=== PATIENT | female | born 1980 | race Caucasian/White ===

== ENCOUNTER 2018-06-06 11:24 | Outpatient (CLI) | payer MEDICAID, SELFPAY | END 2018-06-06 11:44 | PROVIDERS: PCP Family Medicine; Visit Provider Family Medicine | DX: E55.9 Vitamin D deficiency, unspecified (principal) | CPT/HCPCS: 36415; 82306 ==

== ENCOUNTER 2019-06-17 02:00 | Outpatient (CLI) | payer MEDICAID, SELFPAY ==
--- NOTE | 2019-06-17 08:45 | DI.RAD_ITS ---
EXAM: RF BARIUM SWALLOW CLINICAL HISTORY: severe reflux K29.60 GASTRITIS W/O BLEEDING TECHNIQUE: 2D and realtime digital imaging was performed. CONTRAST MATERIAL: Thick and thin barium and barium tablet were administered. COMPARISON: MRI - CERVICAL SPINE W/WO from 02/21/2016 FINDINGS: Initial plain film of the chest reveals normal heart size and clear lung grimaldo. The lateral full fashioned garment knitter v iew of the neck is unremarkable. Surgical clips are noted in the right upper quadrant. Esophagus: The patient swallowed barium without difficulty. the esophagus is patent with no evidence for erosions, fold thickening, strictures, or masses. With regards to the motility, there is a jean claude l primary stripping wave. No tertiary contractions were noted. There is a small hiatal hernia. No ga stroesophageal reflux was observed during the exam. IMPRESSION: Small hiatal hernia, otherwise negative. Fluoro time: 34 seconds
[2019-06-17] MEDS: Barium Sulfate 700 MG TAB PO (09:37)
[2019-06-17] MEDS: Barium Sulfate 60% W/V 355 ML BTL PO (09:37)
[2019-06-17] MEDS: Simethicone/Sod Bicarb/Cit Ac, 4 gram PACKET 1 PACKET PO (09:40)
== END 2019-06-17 02:20 ==
PROVIDERS: PCP Family Medicine; Visit Provider Family Medicine
DX: K29.60 Other gastritis without bleeding (principal); K21.9 Gastro-esophageal reflux disease without esophagitis; K44.9 Diaphragmatic hernia without obstruction or gangrene
CPT/HCPCS: 74221; J3490

== ENCOUNTER → 2022-02-09 03:11 | Outpatient (CLI) | payer MEDICAID, SELFPAY ==
--- NOTE | 2022-02-09 08:00 | DI.MRI_ITS ---
Exam(s) MR BRAIN WO/W EXAM: MR BRAIN WO/W CLINICAL HISTORY: syrinx and now MATA,optic nerve changes,g95.0,h47.099 TECHNIQUE: Multiplanar multisequence MRI of the brain was performed. CONTRAST MATERIAL: IV Contrast: 12 mL of Dotarem contrast administered. COMPARISON: MR MRI - BRAIN WO CONTRAST from 08/19/2012 FINDINGS: The examination is limited due to patient motion artifact. VENTRICLES AND EXTRA AXIAL SPACES: Normal in size and morphology for the patient's age. HEMORRHAGE: None. CEREBRAL PARENCHYMA: No focus of restricted diffusion to suggest acute infarct. No space-occupying le [place] identified. MIDLINE SHIFT: None. BRAINSTEM/CEREBELLUM: Normal. CALVARIUM: Normal. ENHANCEMENT: No suspicious enhancement identified. VISUALIZED PARANASAL SINUSES/MASTOIDS: Clear. TORRES MARTINEZ OF NUGENT: Normal flow void. PITUITARY GLAND: Unremarkable. OTHER FINDINGS: IMPRESSION: Unremarkable MRI of the brain. DATA REPOSITORY:
--- NOTE | 2022-02-09 08:00 | DI.MRI_ITS ---
Exam(s) MR CERVICAL SPINE WO/W EXAM: MR CERVICAL SPINE WO/W CLINICAL HISTORY: 2016 - syrinx - increasing neck pain,m54.2,g95.0,h47.099 TECHNIQUE: Multiplanar multisequence MRI of the cervical spine was performed. CONTRAST MATERIAL: IV Contrast: ML of Dotarem contrast administered. COMPARISON: MR MRI - CERVICAL SPINE W/WO from 02/21/2016 FINDINGS: BONES: Vertebral body heights are maintained. Intervertebral disc spaces are normal. Alignment is nor mal. Bone marrow signal intensity is within normal limits. CERVICAL CORD: Craniovertebral junction is unremarkable. The cervical cord is normal size and signal intensity. The central canal is much less prominent on the current examination compared to 2016. SOFT TISSUES: Unremarkable. ENHANCEMENT: No suspicious enhancement identified. C2-3: No disc herniation or bulge is identified. No significant central spinal canal or neural forami nal stenosis. C3-4: No disc herniation or bulge is identified. No significant central spinal canal or neural forami nal stenosis C4-5: There is prominence of the osteophyte disc complex. There is also prominence of the right unco vertebral joint. There is no significant central spinal canal stenosis or left neural foraminal sten osis. Moderate right neural foraminal stenosis is present. C5-6: There is mild prominence of the osteophyte disc complex. No significant central spinal canal s tenosis is seen. There is [id number]-bz-cvejuyaf bilateral neural foraminal stenosis. C6-7: No disc herniation or bulge is identified. No significant central spinal canal or neural forami nal stenosis C7-T1: No disc herniation or bulge is identified. No significant central spinal canal or neural radha inal stenosis IMPRESSION: 1. No abnormal enhancement or enhancing mass. 2. Cervical spondylosis at C4-5 and C5-C6 resulting in neural foraminal stenosis as described above. DATA REPOSITORY:
[2022-02-09] MEDS: Normal Saline Flush 10 ML SYR IVP (13:07)
== END ==
PROVIDERS: PCP Family Medicine; Visit Provider Family Medicine
DX: G95.0 Syringomyelia and syringobulbia (principal); M54.2 Cervicalgia; M47.812 Spondylosis without myelopathy or radiculopathy, cervical region
CPT/HCPCS: 70553; 72156

== ENCOUNTER 2022-08-31 08:50 | Outpatient (CLI) | payer MEDICAID, SELFPAY ==
--- NOTE | 2022-08-31 06:00 | DI.RAD_ITS ---
Exam(s) XR PAIN CLINIC CERVICAL SP 2V EXAM: XR PAIN CLINIC CERVICAL SP 2V CLINICAL HISTORY: Dx: Cervical Spondylosis TECHNIQUE: 2D and realtime digital imaging was performed. CONTRAST MATERIAL: Refer to procedure report. COMPARISON: No exams were available for comparison FINDINGS: Fluoroscopy was provided for Dr. Doyle during the performance of a cervical medial branch block. Ple ase refer to the procedure report for complete details. Ka,r=3.6 mGy IMPRESSION:
[2022-08-31 08:58] VITALS: BP 142/81; PULSE 89; RESP 20; TEMP 36.9; O2SAT 96
[2022-08-31 09:51] VITALS: BP 124/63; PULSE 76; RESP 24; O2SAT 97
[2022-08-31] MEDS: Bupivacaine 0.5% Pres-Free 10 ML VIAL IJ (09:51)
[2022-08-31] MEDS: Omnipaque 240 MG/ML 50 ML BTL IJ (09:51)
--- NOTE | 2022-08-31 09:55 | PDOC.PAIN ---
Date of service: 08/31/22 Time of Service: 09:58 Pain Managment Procedure Note Procedure Note Procedure Note: CERVICAL MEDIAL BRANCH BLOCKS Ban Park has been referred to the Pain Management Center for cervical medial branch blocks. COMMENTS: She was evaluated by Dr. Marcos in our clinic on 05/22/22 and her symptoms remain the same. Pre-procedure pain VAS was 6/10. DX: Cervical spondylosis without myelopathy Patient was interviewed and the medical record reviewed. There were no medical, pharmacologic, radiographic or other structural contraindications to attempting fluoroscopically guided local anesthetic cervical medial branch blocks. Risks and expected side effects as well as potential benefit of the procedure were reviewed and voiced concerns addressed. The printed consent form was signed and witnessed. Standard time-out procedure was performed. Patient was placed in the right lateral decubitus position on the fluoroscopy table and automated blood pressure cuff and pulse oximeter applied. The skin entry points for approaching the anatomic target points of the segmental medial branches of the left C4-C6 were identified with fluoroscopy and marked. Following thorough Chlorhexadine preparation of the skin and draping, a 25 gauge spinal needle was placed under fluoroscopic guidance down on to the target point for each respective segmental medial branch. Position was confirmed in A/P and leteral views with 0.25ml of omnipaque 240 injected at each level. This revealed appropriate spread and no vascular uptake. At each point 0.3ml 0.5% bupivicaine was injected. The needles were removed without difficulty and bandaids were placed. Vital signs were stable throughout the procedure and were as recorded in the docflowsheet by the nursing staff. Follow up plans and appointments were discussed and patient was instructed to keep careful note of how the usual pain was modified by these injections. Specifically, the patient was asked to keep a pain diary for the next 24 hours using a numeric pain scale of 0-10 and report these results at the follow-up visit. Post procedure instruction was given as documented in the nursing documentation and having met discharge criteria, and was discharged from the Pain Management Center. Based on the medial branches blocked today, if they patient has adequate relief and we are able to proceed to radiofrequency ablation, the treatment should result in the denervation of the left C4-C5 and C5-C6 FACET JOINTS. We would expect to denervate a total of 2 facets during the radiofrequency ablation. COMMENTS: Post-procedure pain VAS was 3/10 and she was able to move her neck much better. Cayetano Doyle DO, MPH [facility] CC: Giovanna Colbert MD, DC
== END 2022-08-31 08:51 | disposition home or self-care (01) ==
LOC: PC 08:50
PROVIDERS: PCP Family Medicine; Visit Provider Preventive Medicine Occupational Medicine
DX: M47.812 Spondylosis without myelopathy or radiculopathy, cervical region (principal)
CPT/HCPCS: 64490; 64491; 72040; Q9967

== ENCOUNTER 2022-09-14 07:10 | Outpatient (CLI) | payer MEDICAID, SELFPAY ==
[2022-09-14 07:20] VITALS: BP 121/81; PULSE 57; RESP 20; TEMP 36.8; O2SAT 98
--- NOTE | 2022-09-14 07:54 | DI.RAD_ITS ---
Exam(s) XR PAIN CLINIC CERVICAL SP 2V EXAM: XR PAIN CLINIC CERVICAL SP 2V CLINICAL HISTORY: Dx: Cervical Spondylosis TECHNIQUE: 2D and realtime digital imaging was performed. Radiologist not present. CONTRAST MATERIAL: None. COMPARISON: No exams were available for comparison FINDINGS: Fluoroscopy was provided for pain management therapy. Please refer to procedure report or details. Radiation Exposure Index: Ka,r=3.02 mGy IMPRESSION: As above. RADIATION DOSE DELIVERED:
[2022-09-14] MEDS: Lidocaine 2% Pres-Free 5 ML VIAL IJ (08:04)
[2022-09-14] MEDS: Omnipaque 240 MG/ML 50 ML BTL IJ (08:04)
[2022-09-14 08:13] VITALS: BP 143/91; PULSE 75; RESP 22; O2SAT 96
--- NOTE | 2022-09-14 08:40 | PDOC.PAIN ---
Date of service: 09/14/22 Time of Service: 08:43 Pain Managment Procedure Note Procedure Note Procedure Note: PROCEDURE NOTE LEFT SIDED CERVICAL MEDIAL BRANCH BLOCKS #2 Date of Service: September 14, 2022 Patient: Ban Park Provider: Cayetano Doyle DO, MPH Ban Park has been referred to the Pain Management Center for cervical medial branch blocks. Pre-operative diagnosis: Cervical Spondylosis without Myelopathy Post-operative diagnosis: Same Pre-procedure pain: VAS= 6/10 COMMENTS: She did very well with her first CMBB at these same levels. Ban was interviewed and the medical record were reviewed. There were no medical, pharmacologic, radiographic or other structural contraindications to attempting fluoroscopically guided local anesthetic cervical medial branch blocks. Risks and potential side effects were discussed. We also discussed the potential benefit(s) of the procedure with Ban, and her voiced concerns were addressed. After she was completely informed about the procedure, the printed consent form was signed. A standard time-out procedure was performed. Ban was placed in the lateral decubitus position on the fluoroscopy table with the effected side up. Automated blood pressure cuff and pulse oximeter were applied. The skin entry points for approaching the anatomic target points of the segmental medial branches of Left C4-C6 were identified with fluoroscopy and marked. The skin at the target site area was thoroughly prepared with Chlorhexadine. The skin was then draped. Next, a 25 gauge 3.5 spinal needle was placed under fluoroscopic guidance down on to the target point (the articular pillar) for each respective segmental medial branch. Position was confirmed in A/P and lateral views. Aspiration revealed no blood or clear fluid. Next, 0.25ml of omnipaque 240 was injected at each level. No contrast following a vascular or neural pattern was visualized under continuous fluoroscopy. Next, 0.25 ml of preservative-free 2% Lidocaine was injected at each level. (48 mls of Omnipaque was wasted) Ban's vital signs were stable throughout the procedure and were as recorded in the docflowsheet by the nursing staff. Provacative testing using the Modified Waters's facet loading test Left side Directly before the block VAS (0-10) = 6/10 5 minutes after the block VAS (0-10) = 2/10 Percentage relief obtained with this diagnostic block 80% Any improved physical functioning directly after the blocks? Able to move her neck much more easily Follow up plans and appointments were discussed with Ban. Ban was instructed to keep careful note of how the usual pain was modified by these injections. Specifically, the patient was asked to keep a pain diary for the next 24 hours using a numeric pain scale of 0-10 and report these results at the follow-up visit. Post procedure instruction was given as documented in the nursing documentation and having met discharge criteria, she was discharged from the Pain Management Center. Based on the medial branches blocked today, if they patient has adequate relief and we are able to proceed to radiofrequency ablation, the treatment should result in the denervation of the Left C4-C5 and C5-C6 facet joints. We would expect to denervate a total of 2 facets during the radiofrequency ablation. COMMENTS: She will call back with her 0-4 hour post-procedure pain scores. Post-procedure pain: VAS= 2/10 I personally performed the entire procedure. Cayetano Doyle DO, MPH ABPMR-subspecialty board certification in Pain Medicine [facility]
== END 2022-09-14 07:11 | disposition home or self-care (01) ==
LOC: PC 07:11
PROVIDERS: PCP Family Medicine; Visit Provider Preventive Medicine Occupational Medicine
DX: M47.812 Spondylosis without myelopathy or radiculopathy, cervical region (principal)
CPT/HCPCS: 64490; 64491; 72040; Q9967

== ENCOUNTER 2022-10-02 07:30 | Outpatient (CLI) | payer MEDICAID, SELFPAY ==
[2022-10-02] MEDS: Midazolam 2 MG/2 ML VIAL IVP (08:21)
[2022-10-02] MEDS: Lactated Ringers 500 ML 80 ML IV (08:24)
--- NOTE | 2022-10-02 08:43 | DI.RAD_ITS ---
Exam(s) XR PAIN CLINIC CERVICAL SP 2V EXAM: XR PAIN CLINIC CERVICAL SP 2V CLINICAL HISTORY: Dx: Cervical Spondylosis. TECHNIQUE: Fluoroscopy was provided for the referring physician for guidance with performing pain cl inic radiofrequency ablation procedure. COMPARISON: No exams were available for comparison FINDINGS: Please see procedure note for details. Fluoro time: 42.1 seconds RADIATION DOSE DELIVERED: Terrar=4.61 mGy
[2022-10-02 08:45] VITALS: BP 105/62; PULSE 66; RESP 16; O2SAT 99
[2022-10-02] MEDS: Dexamethasone Sod. Phos./Pres-Free 10 MG/ML VIAL IJ (08:53)
[2022-10-02] MEDS: Lidocaine 2% Pres-Free 5 ML VIAL IJ (08:54)
[2022-10-02] MEDS: Bupivacaine 0.5% Pres-Free 10 ML VIAL IJ (08:54)
--- NOTE | 2022-10-02 09:03 | PDOC.PAIN ---
Date of service: 10/02/22 Time of Service: 09:03 Pain Managment Procedure Note Procedure Note Procedure Note: Cervical Radiofrequency with Avanos Machine PROCEDURE NOTE Date of Service: October 02, 2022 Patient: Ban Park Provider: Cayetano Doyle DO, MPH Pre Operative Diagnosis: Cervical Spondylosis without Myelopathy Post Operative Diagnosis: Same Pre-procedure pain: VAS 6/10 PROCEDURE: 1. Left C4-C5 facet joint radiofrequency denervation 2.Left C5-C6 facet joint radiofrequency denervation Ban Park was brought to the procedure suite and placed on the exam table in a comfortable lateral recumbent position. The place for the needle placement was obtained by manual palpation as well as radiographic confirmation. The sterile field was prepped by chlorhexidine and sterile drapes. Local anesthesia, both superficial and deep was provided by local infiltration of 3 ml Lidocaine 1%. Using fluoroscopic guidance, A 17g 50 mm radiofrequency introducer needle with a 2 mm active tip was placed overlying the left C4 cervical vertebra from the lateral approach and was advanced until bony contact was felt with the articular pillar. Attempted aspiration revealed no blood or cerebrospinal fluid. Motor testing was then performed with 2.0 volts and no upper extremity motor stimulation was observed. 1 ml of 2% Lidocaine was injected through the RF needle. A radiofrequency lesion of the left medial branch of C4 was then performed at 80 degrees Celsius for 2 minutes and 30 seconds. The same procedure was repeated for left C5 and C6 medial branches. POST PROCEDURE EVALUATION: IMPRESSION: 1. Medication given is documented in the MAR 2. Follow up plan: Follow up as needed. 3. Estimated Blood Loss: <5ml 4. Fluoroscopy time: Documented in the EMR Follow up plans and appointments were discussed with the Ban . Post procedure instruction was given as documented in nursing documentation and having met discharge criteria, Ban was discharged from the Pain Management Center. COMMENTS: No apparent complications. Post-procedure pain: VAS= 0/10. I personally performed this entire procedure. Cayetano Doyle DO, MPH [facility]-Pain Management [facility]
== END 2022-10-02 07:31 | disposition home or self-care (01) ==
LOC: PC 07:30
PROVIDERS: PCP Family Medicine; Visit Provider Preventive Medicine Occupational Medicine
DX: M47.812 Spondylosis without myelopathy or radiculopathy, cervical region (principal)
CPT/HCPCS: 64633; 64634; 72040; J2250

== ENCOUNTER → 2023-02-20 18:41 | Outpatient (CLI) | payer MEDICAID, SELFPAY ==
--- NOTE | 2023-02-20 12:15 | DI.US_ITS ---
Exam(s) US LOWER EXTREMITY VENOUS LT EXAM: US LOWER EXTREMITY VENOUS LT CLINICAL HISTORY: left leg swelling,M79.89 TECHNIQUE: Grayscale, color, and doppler imaging of the deep venous system of the left lower extremi ty was performed. COMPARISON: US ABDOMEN ULTRASOUND (P) from 08/19/2012 FINDINGS: There is no evidence of intraluminal thrombus and there is normal compression and augmentation demons trated within the common femoral vein, femoral vein, and popliteal vein. In the ipsilateral calf the interrogated veins also exhibit normal compression/ augmentation properti es. The ipsilateral saphenofemoral junction is patent. IMPRESSION: 1. No evidence of DVT in the left lower extremity. DATA REPOSITORY:
== END ==
PROVIDERS: PCP Family Medicine; Visit Provider Family Medicine
DX: M79.89 Other specified soft tissue disorders (principal)
CPT/HCPCS: 93971

== ENCOUNTER 2023-04-06 02:09 | Outpatient (CLI) | payer MEDICAID, SELFPAY ==
[2023-04-06 13:57] LABS: HCT 39.1 % (36.0-46.0); MCH 30.2 pg (27.0-33.0); MCHC 33.2 % (32.0-36.0); MCV 91 fL (80-95); Platelet Count 507 10^3/uL (130-400); RBC 4.31 10^6/uL (3.93-5.22); RDW 14.9 % (11.7-14.6); RDW-SD 49.7 fL
[2023-04-06 14:07] LABS: WBC 14.42 10^3/uL (4.4-10.8)
[2023-04-06 14:23] LABS: ALT 15 U/L (14-59); AST 14 U/L (15-37); Albumin 3.9 g/dL (3.4-5.0); Alkaline Phosphatase 61 U/L (46-116); Anion Gap 6.8 mmol/L (3-11); BUN 13 mg/dL (7-18); Bilirubin, Total 0.3 mg/dL (0.2-1.0); CO2 28.2 mmol/L (21.0-32.0); Calcium 9.1 mg/dL (8.5-10.1); Chloride 105 mmol/L (98-107); Estimated GFR 72.58 (mL/min/1.73m2); Glucose 115 mg/dL (74-106); Lipase 192 U/L (16-77); Potassium 3.7 mmol/L (3.5-5.1); Sodium 140 mmol/L (136-145); TSH (W/Ref FT4) 0.67 uIU/mL (0.36-3.74); Total Protein 7.4 g/dL (6.4-8.2)
== END 2023-04-06 02:10 | disposition home or self-care (01) ==
LOC: LBO 02:09
PROVIDERS: PCP Family Medicine; Visit Provider Family Medicine
DX: E03.9 Hypothyroidism, unspecified (principal); R10.9 Unspecified abdominal pain; I10 Essential (primary) hypertension
CPT/HCPCS: 36415; 80053; 83690; 85027; 84443

== ENCOUNTER 2023-04-18 07:35 | Outpatient (CLI) | payer BC, MEDICAID, SELFPAY ==
[2023-04-18 07:47] VITALS: BP 124/72; PULSE 67; RESP 20; TEMP 36.7; O2SAT 96
[2023-04-18] MEDS: Midazolam 2 MG/2 ML VIAL IVP (08:25)
--- NOTE | 2023-04-18 08:51 | PDOC.PAIN_ITS ---
Date of service: 04/18/23 Time of Service: 08:51 Pain Managment Procedure Note Procedure Note Procedure Note: PROCEDURE NOTE LEFT Cervical Radiofrequency Ablation Date of Service: April 18, 2023 Patient:? Ban Park? Provider:? Cayetano Doyle DO, MPH Ban Park has been referred to the [facility] for LEFT Cervical Radiofrequency Ablation with the AvLesConciergess Machine.? Pre Operative Diagnosis: Cervical Spondylosis without Myelopathy Post Operative Diagnosis: Same Pre procedure pain; VAS= 5/10 Comments: She had >6 months of >50% pain relief from her last left C4-C6 RFA on 10/02/22 PROCEDURE: 1. Left C4-C5 facet joint radiofrequency denervation 2. Left C5-C6 facet joint radiofrequency denervation Toluwas interviewed and the medical record was reviewed.? There were no medical, pharmacologic, radiographic or other structural contraindications to attempting fluoroscopically guided LEFT Cervical Radiofrequency Ablation.?Risks and expected side effects as well as potential benefit of the procedure were reviewed with Ban, and the patient's voiced concerns were addressed.? The printed consent form was signed.? Standard time-out procedure was performed. Ban was brought to the procedure suite and placed on the exam table in a comfortable lateral recumbent position. A grounding pad was placed on the left abdomen. The place for the needle placement was obtained by manual palpation as well as radiographic confirmation. The sterile field was prepped by chlorhexidine and sterile drapes. Local anesthesia, both superficial and deep was provided by local infiltration of 3 ml Lidocaine 1%. Using fluoroscopic guidance, A 17g 50 mm radiofrequency introducer needle with a 2 mm active tip was placed overlying the right C4 cervical vertebra from the lateral approach and was advanced until bony contact was felt with the articular pillar. Attempted aspiration revealed no blood or cerebrospinal fluid. Motor testing was then performed with 2.0 volts and no upper extremity motor stimulation was observed. 1 ml of 2% Lidocaine was injected through the RF needle. A radiofrequency lesion of the Left medial branch of C4 was then performed at 80 degrees Celsius for 2 minutes and 30 seconds. There was no unusual discomfort expressed by Ban. The needles were withdrawn without difficulty. Ban was observed and was without hemodynamic, neurologic, or allergic reactions. Fluoroscopic images were digitally archived. The same procedure was repeated for Left C5 and C6 medial branches. POST PROCEDURE EVALUATION: IMPRESSION: 1. Medication given is documented in the MAR 2. Follow up plan: Ban to contact [facility] as needed. This procedure may be repeated if the patient achieves at least 50% improvement in pain and/or function for at least 6 months. 3. Estimated Blood Loss: <5ml 4. Fluoroscopy time: Documented in the EMR Follow up plans and appointments were discussed with Ban. Post procedure instruction was given as documented in nursing documentation and having met discharge criteria, Ban was discharged from the [facility]. COMMENTS: No apparent complications. Post-procedure pain: VAS= 2/10. I personally performed this entire procedure. CAYETANO DOYLE DO, MPH ABPM&R - Subspecialty board certification in Pain Medicine [facility]
[2023-04-18 08:52] VITALS: BP 96/61; PULSE 61; RESP 16; O2SAT 98
--- NOTE | 2023-04-18 08:54 | DI.RAD_ITS ---
Exam(s) XR PAIN CLINIC CERVICAL SP 2V EXAM: XR PAIN CLINIC CERVICAL SP 2V CLINICAL HISTORY: DX: Cervical Spondylosis. TECHNIQUE: Fluoroscopy was provided for the referring physician for guidance with performing pain cl inic injection procedure. COMPARISON: No exams were available for comparison FINDINGS: Please see procedure note for details. Fluoro time: 51.1 seconds RADIATION DOSE DELIVERED: hla Ellison=8.18 mGy
[2023-04-18] MEDS: Bupivacaine 0.5% Pres-Free 10 ML VIAL IJ (09:03)
[2023-04-18] MEDS: Lidocaine 2% Pres-Free 5 ML VIAL IJ (09:04)
[2023-04-18] MEDS: Dexamethasone Sod. Phos./Pres-Free 10 MG/ML VIAL IJ (09:04)
== END 2023-04-18 07:36 | disposition home or self-care (01) ==
LOC: PC 07:35
PROVIDERS: PCP Family Medicine; Visit Provider Preventive Medicine Occupational Medicine
DX: M47.812 Spondylosis without myelopathy or radiculopathy, cervical region (principal)
CPT/HCPCS: 123; 64633; 64634; 72040; 00123; J0665; J1100; J2250

== ENCOUNTER → 2023-04-20 00:46 | Outpatient (CLI) | payer BC, MEDICAID, SELFPAY ==
--- NOTE | 2023-04-20 08:15 | DI.CT_ITS ---
Exam(s) CT ABDOMEN PELVIS W EXAM: CT ABDOMEN PELVIS W CLINICAL HISTORY: abdominal pain,r10.9. TECHNIQUE: Imaging Protocol: Axial computed tomography images with coronal and sagittal reformatted images were created and reviewed CONTRAST MATERIAL: Intravenous: Omnipaque 350 Contrast volume:100 ml Oral: yes / COMPARISON: CT ABD PELVIS WITH CONTRAST from 11/24/2009 FINDINGS: ABDOMEN and PELVIS: Lung Bases: No acute findings. Moderate size hiatal hernia. Liver: Normal density. No measurable mass. Gallbladder and biliary tract: Status post cholecystectomy. No radiodense calculus or dilation. Pancreas: Normal density. No abnormal calcifications or inflammatory process. No evidence of mass. Spleen: Status post splenectomy. Arm small amount of regenerative splenic tissue. Kidneys: Normal size, contour and axis. No radiodense stones. No obstructive uropathy. No suspicious masses seen. Adrenal glands: No masses seen. Vasculature: Abdominal aorta non-dilated. Soft tissues: Unremarkable. Bladder: No gross wall thickening. No calculi.No focal mass. Bowel: Large quantity of stool throughout the colon with sparing of the rectum, consistent with const ipation. No obstruction. No bowel wall thickening. Appendix normal. Peritoneal cavity: No ascites. No focal collection or mesenteric inflammatory response. Bones: Unremarkable for age. Reproductive organs: Within normal limits. IUD in place. Lymph nodes: Unremarkable. IMPRESSION:: Large quantity of stool consistent with constipation, otherwise unremarkable CT scan of the abdomen and pelvis. RADIATION DOSE DELIVERED: !Error Total DLP DATA REPOSITORY: All CT scans at this facility are submitted to the National Radiology Data Registry (NRDR) Dose Index Registry (DIR) with the [employer] (ACR). RADIATION OPTIMIZATION: All CT scans at this facility use at least one of these dose optimization te chniques: automated exposure control; mA and/or kV adjustment per patient size (includes targeted exa ms where dose is matched to clinical indication); or iterative reconstruction.
[2023-04-20] MEDS: Barium Sulfate 2% W/V-Berry Smoothie 450 ML BTL PO ×2 (12:08→12:09)
[2023-04-20] MEDS: Omnipaque 350 MG/ML 100 ML BTL IJ (14:03)
[2023-04-20] MEDS: Normal Saline - Diluent 50 ML VIAL IJ (14:04)
== END ==
PROVIDERS: PCP Family Medicine; Visit Provider Family Medicine
DX: R10.9 Unspecified abdominal pain (principal); K59.00 Constipation, unspecified
CPT/HCPCS: 74177; J3490

== ENCOUNTER 2023-07-04 13:10 | Outpatient (REF) | payer BC, SELFPAY ==
--- NOTE | 2023-07-04 11:30 | PAPFT_PTH ---
PATIENT: Ban Olvera LOC: [facility] U#:[id number] AGE/SX: 43/F ROOM: RE07/04/[address]: Althea Le NP : 1980 BED: DIS: 07/04/2023 SPEC #: [id number] RECD: 07/04/23 13:19 STATUS: BLADE REBridget #: [id number] TRAMAINE: 07/04/23 11:[address]: Rey KAUR,Althea DEPT: [facility] Cytology RECD BY: Marilu Martinez ENTERED: 07/04/23 13:19 SP TYPE: PAPFT OTHR DR: Giovanna Colbert MD, DC Tissues: 1 - CX/ENDOCX FOR PAP SMEARS Procedures: PAP THIN PREP/UVM Screening HPV DNA PROBE Comments: [id number]
== END 2023-07-04 13:11 | disposition home or self-care (01) ==
LOC: LBN 13:10
PROVIDERS: PCP Family Medicine; Visit Provider Nurse Practitioner Women's Health
DX: Z12.4 Encounter for screening for malignant neoplasm of cervix (principal)
CPT/HCPCS: 88142; 87624

== ENCOUNTER → 2023-07-11 03:19 | Outpatient (CLI) | payer MEDICAID, SELFPAY ==
--- NOTE | 2023-07-11 08:00 | DI.MAMMO_ITS ---
Exam(s) MAMMO SCREENING EXAM: MAMMO SCREENING CLINICAL HISTORY: screening,z12.39 TECHNIQUE: Bilateral full field digital CC and MLO mammographic images were obtained with 3D tomosyn thesis and utilizing computer aided detection (CAD). COMPARISON: This is a baseline examination. FINDINGS: Masses/Architectural Distortion: There is a partially obscured nodule in the upper outer quadrant of the left breast measuring 5 mm. It is 4 cm from the nipple. There are no areas of architectural dis tortion. Microcalcifications: No suspicious pleomorphic-type are seen. Skin Thickening/Nipple Retraction: None. IMPRESSION: 1. Partially obscured nodule in the upper outer quadrant of the left breast. 2. Spot compression views requested. Limited left breast ultrasound may be indicated at that time. BI-RADS Category 0 - Assessment Incomplete: Need additional imaging evaluation Breast Density - Category B - Scattered areas of fibroglandular density Breast density category C or D implies that the patient has dense breast tissue. Dense breast tissue is very common and is not abnormal but dense breast tissue can make it harder to find cancer on a ma mmogram. Also, dense breast tissue may increase their breast cancer risk. This information about the result of the mammogram report was provided to the patient to raise their awareness. Use this report when you speak with the patient about their risks for breast cancer, which includes their family hist ory. At that time, you may recommend for more screening tests (Ultrasound or MRI) as they might be us eful based on their risk. A negative radiographic report should not delay biopsy if a dominant or clinically suspicious mass is present. Up to ten percent of cancers are not identified on mammography. A negative report may reinforce clinical impression. Adenosis and dense breasts may obscure an underlying neoplasm. False positive reports average 6 to 10%. Patient will receive a letter notifying them of these results.
== END ==
PROVIDERS: PCP Family Medicine; Visit Provider Nurse Practitioner Women's Health
DX: Z12.31 Encounter for screening mammogram for malignant neoplasm of breast (principal)
CPT/HCPCS: 77063; 77067

== ENCOUNTER → 2023-07-18 03:34 | Outpatient (CLI) | payer MEDICAID, SELFPAY ==
--- NOTE | 2023-07-18 13:08 | DI.MAMMO_ITS ---
Exam(s) MG MAMMO SCREEN CALL BACK UNI US BREAST LT LIMITED EXAM: MG MAMMO SCREEN CALL BACK UNI and U/S breast LT limited CLINICAL HISTORY: R92.8 ABN mammo, partially obscured nodule upper outer quad lt breast. TECHNIQUE: Craniocaudal and mediolateral oblique Full Field Digital Mammography views of the left br east with Computer Aided Diagnosis followed by Tomosynthesis and left breast ultrasound. COMPARISON: Comparison is made with prior examination. FINDINGS: Mammography/Tomosynthesis: Masses/Architectural Distortion: The well-circumscribed nodule in the upper outer quadrant of the lef t breast persists. There is no evidence of architectural distortion. Microcalcifictions: No suspicious pleomorphic-type are seen. Skin Thickening/Nipple Retraction: None. Limited left breast US: Echotexture: Normal appearance of the glandular tissue. Shadowing: No suspicious foci. Cyst: There are several simple cysts present. At the 1 to 3 o'clock position of the left breast, sma ll simple cysts are present. The largest measures 4 mm. In the retroareolar region of the left [address], there is a 0.5 cm simple cyst present. Solid lesions: None seen. Ductal dilation: None. IMPRESSION: 1. No definite evidence of malignancy is noted. 2. A six-month follow-up left mammogram is requested for re-evaluation. 3. The findings were discussed with the patient on the date of the examination. BI-RADS Category 3 - 6 month - Probably Benign Finding: Recommend follow-up imaging in 6 months Breast Density - Category B - Scattered areas of fibroglandular density Breast density Category C or D implies that the patient has dense breast tissue. Dense breast tissue can make it harder to find cancer on a mammogram. Dense breast tissue is also associated with an incr eased risk of breast cancer. This information about the result of the mammogram report was provided to the patient to raise their awareness. Use this report when you speak with the patient about their risks for breast cancer, which includes their family history. At that time, you may recommend additional screening tests (Ultrasoun d or MRI) as these tests may add significant information. A negative radiographic report should not delay biopsy if a dominant or clinically suspicious mass is present. Up to ten percent of cancers are not identified on mammography. A negative report may reinforce clinical impression. Adenosis and dense breasts may obscure an underlying neoplasm. False positive reports average 6 to 10%. Patient will receive a letter notifying them of these results.
== END ==
PROVIDERS: PCP Family Medicine; Visit Provider Nurse Practitioner Women's Health
DX: R92.8 Other abnormal and inconclusive findings on diagnostic imaging of breast (principal)
CPT/HCPCS: 76642; 77063; 77067

== ENCOUNTER 2023-07-18 15:18 | Outpatient (REF) | payer MEDICAID, SELFPAY ==
[2023-07-19 13:25] LABS: Chlamydia Result Negative (Negative); GC Result Negative (Negative)
== END 2023-07-18 15:19 | disposition home or self-care (01) ==
LOC: LBN 15:18
PROVIDERS: PCP Family Medicine; Visit Provider Nurse Practitioner Women's Health
DX: Z11.3 Encounter for screening for infections with a predominantly sexual mode of transmission (principal)
CPT/HCPCS: 87491; 87591

== ENCOUNTER 2024-02-12 01:21 | Outpatient (CLI) | payer MEDICAID, SELFPAY ==
--- NOTE | 2024-02-12 06:30 | DI.US_ITS ---
Exam(s) MG MAMMO DIAGNOSTIC UNI US BREAST LT LIMITED EXAM: MG MAMMO DIAGNOSTIC UNI CLINICAL HISTORY: 6 month f/u,lt nodule and cysts. COMPARISON: MG MG MAMMO SCREENING from 07/11/2023 US US BREAST LT LIMITED from 07/18/2023 MG MG MAMMO SCREEN CALL BACK UNI from 07/18/2023 US US BREAST LT LIMITED from 02/12/2024 TECHNIQUE: Craniocaudal and mediolateral oblique Full Field Digital Mammography views of the left br east with Computer Aided Diagnosis followed by Tomosynthesis and left breast ultrasound. FINDINGS: Mammography/Tomosynthesis: Masses/Architectural Distortion: Small nodule breast. Microcalcifications: No suspicious pleomorphic-type are seen. Skin Thickening/Nipple Retraction: None. Left breast US: Echotexture: Normal appearance of the glandular tissue. Shadowing: No suspicious foci. Cyst: 6 millimeter cyst 3 o'clock position 3 cm from the nipple. 4 millimeter maximal dimension cyst in the retroareolar region. 4 x 5 millimeter cyst 2 o'clock position. Nearby 3 millimeter cyst. Solid lesions: None seen. Ductal dilation: None. IMPRESSION: 1. No evidence of malignancy is noted. Multiple cysts. No suspicious abnormalities. 2. Unless there is more urgent need, follow-up screening mammography is recommended, as per [employer] [place] [employer] guidelines, due in 6 months.. BI-RADS Category 2 - Benign Findings Breast Density - Category B - Scattered areas of fibroglandular density Breast density category C or D implies that the patient has dense breast tissue. Dense breast tissue is very common and is not abnormal but dense breast tissue can make it harder to find cancer on a ma mmogram. Also, dense breast tissue may increase their breast cancer risk. This information about the result of the mammogram report was provided to the patient to raise their awareness. Use this report when you speak with the patient about their risks for breast cancer, which includes their family hist ory. At that time, you may recommend for more screening tests (Ultrasound or MRI) as they might be us eful based on their risk. A negative radiographic report should not delay biopsy if a dominant or clinically suspicious mass is present. Up to ten percent of cancers are not identified on mammography. A negative report may reinforce clinical impression. Adenosis and dense breasts may obscure an underlying neoplasm. False positive reports average 6 to 10%. Patient will receive a letter notifying them of these results.
== END 2024-02-12 01:41 ==
PROVIDERS: PCP Family Medicine; Visit Provider Nurse Practitioner Women's Health
DX: R92.8 Other abnormal and inconclusive findings on diagnostic imaging of breast (principal); Z12.31 Encounter for screening mammogram for malignant neoplasm of breast
CPT/HCPCS: 76642; 77061; 77065; G0279

== ENCOUNTER 2024-07-14 01:10 | Outpatient (CLI) | payer BC, SELFPAY ==
--- NOTE | 2024-07-14 14:55 | DI.MAMMO_ITS ---
Exam(s) MAMMO SCREENING EXAM: MAMMO SCREENING CLINICAL HISTORY: screening,Z12.39 TECHNIQUE: Bilateral full field digital CC and MLO mammographic images were obtained with 3D tomosyn thesis and utilizing computer aided detection (CAD). COMPARISON: Available for comparison. FINDINGS: Masses/Architectural Distortion: There is a stable well-circumscribed nodule in the mid central left breast. No suspicious or new nodules are seen. No areas of architectural distortion are present. Microcalcifications: No suspicious pleomorphic-type are seen. Skin Thickening/Nipple Retraction: None. IMPRESSION: 1. No significant interval change with no specific features of malignancy noted. 2. Unless there is more urgent need, screening mammography is recommended, as per [place] [employer] guidelines. BI-RADS Category 2 - Benign Findings Breast Density - Category B - Scattered areas of fibroglandular density Breast density category C or D implies that the patient has dense breast tissue. Dense breast tissue is very common and is not abnormal but dense breast tissue can make it harder to find cancer on a ma mmogram. Also, dense breast tissue may increase their breast cancer risk. This information about the result of the mammogram report was provided to the patient to raise their awareness. Use this report when you speak with the patient about their risks for breast cancer, which includes their family hist ory. At that time, you may recommend for more screening tests (Ultrasound or MRI) as they might be us eful based on their risk. A negative radiographic report should not delay biopsy if a dominant or clinically suspicious mass is present. Up to ten percent of cancers are not identified on mammography. A negative report may reinforce clinical impression. Adenosis and dense breasts may obscure an underlying neoplasm. False positive reports average 6 to 10%. Patient will receive a letter notifying them of these results.
== END 2024-07-14 01:30 ==
LOC: DI 01:11
PROVIDERS: PCP Family Medicine; Visit Provider Nurse Practitioner Women's Health
DX: Z12.31 Encounter for screening mammogram for malignant neoplasm of breast (principal); R92.323 Mammographic fibroglandular density, bilateral breasts; D24.2 Benign neoplasm of left breast
CPT/HCPCS: 77063; 77067

== ENCOUNTER 2024-10-09 09:33 | Outpatient (CLI) | payer BC, SELFPAY ==
[2024-10-09 12:51] LABS: ALT 27 U/L (14-59); AST 24 U/L (15-37); Albumin 4.1 g/dL (3.4-5.0); Alkaline Phosphatase 86 U/L (46-116); Anion Gap 7.9 mmol/L (3-11); BUN 11 mg/dL (7-18); Bilirubin, Total 0.9 mg/dL (0.2-1.0); CO2 28.1 mmol/L (21.0-32.0); Chloride 104 mmol/L (98-107); Estimated GFR 71.69 (mL/min/1.73m2); Glucose 86 mg/dL (74-106); Potassium 3.6 mmol/L (3.5-5.1); Sodium 140 mmol/L (136-145); Total Protein 7.2 g/dL (6.4-8.2)
[2024-10-09 12:53] LABS: Vitamin B12 > 2000 pg/mL (193-986)
[2024-10-10 11:27] LABS: Hepatitis C Ab w Rflx HCV PCR Negative (Negative)
== END 2024-10-09 09:34 | disposition home or self-care (01) ==
PROVIDERS: PCP Family Medicine; Referring Provider Family Medicine; Visit Provider Family Medicine
DX: K29.60 Other gastritis without bleeding (principal); K44.9 Diaphragmatic hernia without obstruction or gangrene; I10 Essential (primary) hypertension; Z11.59 Encounter for screening for other viral diseases
CPT/HCPCS: 36415; 80053; 86803; 82607; 83735